=== PATIENT | male | born 1935 | race Caucasian/White ===

== ENCOUNTER → 2023-06-25 09:00 | Outpatient (REF) | payer MEDICARE, BC, SELFPAY ==
[2023-06-25 09:53] LABS: Urine Albumin Negative (Neg - Trace); Urine Bilirubin Negative (Negative); Urine Character Clear (Clear); Urine Color Yellow; Urine Glucose Negative (Negative); Urine Ketone Negative (Negative); Urine Leukocyte Negative (Negative); Urine Nitrite Negative (Negative); Urine Occult Blood Trace (Negative); Urine Urobilinogen 1+ (Neg - 1+)
[2023-06-25 10:15] LABS: % Basophils 0.7 % (0-2); % Eosinophils 1.9 % (0-6); % Immature Granulocytes 0.3 % (0-0.5); % Lymphocytes 15.9 % (20.5-51.1); % Neutrophils 69.2 % (42.2-75.2); Absolute Eosinophils 0.1 10^3/uL (0-0.7); Absolute Lymphocytes 0.9 10^3/uL (1.2-3.4); Absolute Monocytes 0.7 10^3/uL (0.1-0.6); Hematocrit 46.5 % (39.0-52.0); Hemoglobin 15.7 g/dL (13.0-18.0); Mean Corp Hgb Conc. 33.8 g/dL (33.0-37.0); Mean Corpuscular Hgb 32.2 pg (27.0-31.0); Mean Corpuscular Volume 95.3 fL (80.0-94.0); Mean Platelet Volume 9.3 fL (7.4-10.4); Nucleated Red Blood Cells % 0 % (-); Platelet Count 179 10^3/uL (130-400); Red Blood Cell Count 4.88 10^6/uL (4.70-6.10); Red Cell Dist. Width 14.4 % (11.5-14.5); White Blood Cell Count 5.7 10^3/uL (4.8-10.8)
[2023-06-25 10:29] LABS: Urine Red Blood Cell 0-2 /HPF (0-2); Urine White Cell 0-2 /HPF (0-5)
[2023-06-25 10:33] LABS: ALT (SGPT) 33 U/L (0-50); AST (SGOT) 42 U/L (17-59); Albumin 4.2 g/dl (3.5-5.0); Alkaline Phosphatase 80 U/L (38-126); Blood Urea Nitrogen 25 mg/dl (9-20); Calcium 9.4 mg/dl (8.4-10.2); Carbon Dioxide 34 mmol/L (22-30); Chloride 98 mmol/L (98-107); Glucose 97 mg/dl (70-99); HDL Cholesterol 59 mg/dl; LDH 359 U/L (120-246); LDL Cholesterol, Calculated 52 mg/dl; Potassium 3.2 mmol/L (3.5-5.1); Sodium 137 mmol/L (135-145); Total Bilirubin 1.5 mg/dl (0.2-1.3); Total Cholesterol 123 mg/dl (50-199); Total Protein 7.2 g/dl (6.3-8.2); Triglyceride 60 mg/dl (10-149); Very Low Density Lipoprotein 12 mg/dl (0-30); eGFR > 60.00
[2023-06-25 11:51] LABS: PSA, Total - Screen 1.89 ng/ml (0.0-4.0); TSH Reflex To Free T4 2.49 uIU/ml (0.47-4.68)
[2023-06-25 12:56] LABS: Glycohemoglobin (HgbA1c) 6.3 % (4.0-5.6)
== END ==
LOC: REG 09:00
PROVIDERS: ATTENDING PHYSICIAN General Practice; OTHER PHYSICIAN Dermatology; REFERRING PHYSICIAN Internal Medicine Cardiovascular Disease
DX: Z76.89 Persons encountering health services in other specified circumstances (principal); Z79.899 Other long term (current) drug therapy; R73.01 Impaired fasting glucose; R74.02 Elevation of levels of lactic acid dehydrogenase [LDH]; Z12.5 Encounter for screening for malignant neoplasm of prostate
CPT/HCPCS: 36415; 80053; 80061; 81003; 81015; 83036; 83615; 84443; 85025; G0103

== ENCOUNTER → 2023-08-15 09:17 | Outpatient (REF) | payer MEDICARE, BC, SELFPAY | LOC: HWRCS 09:17 | PROVIDERS: ATTENDING PHYSICIAN Internal Medicine Cardiovascular Disease; FAMILY PHYSICIAN General Practice | DX: Z95.2 Presence of prosthetic heart valve (principal) | CPT/HCPCS: 93306 ==

== ENCOUNTER 2023-12-02 07:28 | Inpatient (IN) | payer MEDICARE, BC, SELFPAY ==
[2023-11-12 14:13] VITALS: BMI 24.5
[2023-11-12 14:39] LABS: Hematocrit 43.1 % (39.0-52.0); Hemoglobin 14.9 g/dL (13.0-18.0); Mean Corp Hgb Conc. 34.6 g/dL (33.0-37.0); Mean Corpuscular Hgb 31.5 pg (27.0-31.0); Mean Corpuscular Volume 91.1 fL (80.0-94.0); Mean Platelet Volume 9.6 fL (7.4-10.4); Platelet Count 198 10^3/uL (130-400); Red Blood Cell Count 4.73 10^6/uL (4.70-6.10); Red Cell Dist. Width 14.7 % (11.5-14.5); White Blood Cell Count 6.1 10^3/uL (4.8-10.8)
[2023-11-12 15:11] LABS: ALT (SGPT) 28 U/L (0-50); AST (SGOT) 40 U/L (17-59); Albumin 4.3 g/dl (3.5-5.0); Alkaline Phosphatase 73 U/L (38-126); Blood Urea Nitrogen 24 mg/dl (9-20); Calcium 9.6 mg/dl (8.4-10.2); Carbon Dioxide 31 mmol/L (22-30); Chloride 97 mmol/L (98-107); Estimated Creatinine Clearance 51 ml/min; Glucose 94 mg/dl (70-99); Potassium 3.7 mmol/L (3.5-5.1); Sodium 141 mmol/L (135-145); Total Bilirubin 1.4 mg/dl (0.2-1.3); Total Protein 7.3 g/dl (6.3-8.2); eGFR > 60.00
[2023-11-13 08:39] LABS: Glycohemoglobin (HgbA1c) 5.6 % (4.0-5.6)
[2023-12-02] VITALS (12 sets, daily range): BP systolic 117–164; BP diastolic 53–84; O2SAT 96; BMI 24.5; BMI 25.3
[2023-12-02] MEDS: TYLENOL 650 MG PO ×5 (08:02→23:42)
[2023-12-02] MEDS: CELEBREX 200 MG PO (08:03)
[2023-12-02] MEDS: NORMOSOL-R/PLASMALYTE-A 1000 IV ×2 (08:04→13:39)
[2023-12-02] MEDS: ROXICODONE 5 MG PO (12:28)
--- NOTE | 2023-12-02 12:46 | W.PN.ORTHO ---
Today's Communication / Plan
-
D/c when clinically stable.
Assessment
.
Distal Motor Intact: Yes
Dressing:
Scant areas of incisional bleeding.
Assessment:
L knee OA s/p L TKA w/ Dr Charles 12/02/23
- s/p b/l PAUL
DVT prophylaxis - Eliquis at modified dosing, b/l venous foot pumps
- Home dosing of Eliquis to be resumed POD 3 if hemodynamically stable
HTN - + parameters - monitor BP
LBBB and PAF � monitor on tele
- Continue Carvedilol, Diltiazem
- Eliquis as stated above
DENISE, compliant w/ CPAP and chronic SANTANA - monitor O2
- Continue CPAP HS
- IS
HLD�
CAD s/p PCI w/ stent to mid
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
Mild AR
Mild-mod MR
Mod TR
H/o vasovagal syncope
Diverticulosis
Prostate CA, s/p XRT 2002
Melanoma
[place] b/l
Has prophylactic Cefadroxil upon d/c
Plan
.
Surgery / Date: L TKA w/ Dr Charles 12/02/23
DVT Prophylaxis: Other (Eliquis )
Activity:
Out of bed.
PT/OT
Discharge Plan: Home w/ Outpatient PT
Subjective
.
.:
Patient resting comfortably in PACU.
L knee pain minimal and currently well tolerated.
Denies any new significant complaints.
Vital Signs and Labs
.
Vital Signs and Labs:
Lab Results
11/12/23 14:09
11/12/23 14:09
Temp Pulse Resp BP Pulse Ox
97.9 F 71 16 156/72 100
12/02/23 07:52 12/02/23 07:52 12/02/23 07:52 12/02/23 07:52 12/02/23 07:52
Physical Exam
-
HEENT: No pallor, cyanosis, or jaundice. Throat clear.
NECK: Supple. No JVD.
RESPIRATORY: Lungs clear to auscultation.
CVS: Irregular irregular.
ABDOMEN: Soft, non-tender. No distension.
EXTREMITIES: Strength equal, no calf pain with palpation/dorsiflexion. Calves soft.
WELFARE INVESTIGATOR: AOx3. No focal deficits. security coordinator grossly intact
--- NOTE | 2023-12-02 13:59 | PTCARENOTE ---
1316: Patient arrived to 2S. Full head to toe assessment completed. B/L LE neurovascular assessment completed. Scant amount of drainage on L knee primaseal. Patient on RA with SpO2 greater than 92%. IVF running per order. Call vital within reach and
bed in lowest position. Patients family at bedside.
--- NOTE | 2023-12-02 16:58 | RESPNOTE ---
Patient said he is here for only one night and would like to sleep without the CPAP machine.
[2023-12-02] MEDS: ANCEF 5 IV (17:03)
[2023-12-02] MEDS: LIPITOR 80 MG PO (17:03)
[2023-12-02] MEDS: BACTROBAN 2% OINTMENT 1 APPLIC NASAL (21:00)
[2023-12-02] MEDS: ELIQUIS 2.5 MG PO (21:00)
[2023-12-02] MEDS: DECADRON 4 MG PO (21:00)
[2023-12-02] MEDS: COREG 3.125 MG PO (21:00)
[2023-12-02] MEDS: COLACE 100 MG PO (21:00)
[2023-12-02] MEDS: SENOKOT 17.2 MG PO (21:00)
[2023-12-03] MEDS: ANCEF 5 IV (01:07)
[2023-12-03 03:05] VITALS: BP 132/70
[2023-12-03] MEDS: TYLENOL PO (04:37)
[2023-12-03 07:40] VITALS: BP 151/74
[2023-12-03] MEDS: ELIQUIS 2.5 MG PO (07:54)
[2023-12-03] MEDS: ZETIA 10 MG PO (07:54)
[2023-12-03] MEDS: COLACE 100 MG PO (07:54)
[2023-12-03] MEDS: SENOKOT 17.2 MG PO (07:54)
[2023-12-03] MEDS: CARDIZEM CD 180 MG PO (07:54)
[2023-12-03] MEDS: PROTONIX 40 MG PO (07:55)
[2023-12-03] MEDS: COREG 3.125 MG PO (07:55)
[2023-12-03] MEDS: DECADRON 4 MG PO (07:55)
[2023-12-03] MEDS: TYLENOL 650 MG PO (07:55)
[2023-12-03] MEDS: Hygroton 25 MG PO (07:55)
[2023-12-03] MEDS: BACTROBAN 2% OINTMENT 1 APPLIC NASAL (07:55)
[2023-12-03 08:40] VITALS: BP 174/90
--- NOTE | 2023-12-03 09:31 | W.PN.ORTHO ---
Today's Communication / Plan
-
D/c today since clinically stable, did well w/ PT and OT.
Assessment
.
Distal Motor Intact: Yes
Dressing:
Scant areas of old incisional bleeding.
Assessment:
L knee OA s/p L TKA w/ Dr Charles 12/02/23
- s/p b/l PAUL
DVT prophylaxis - Eliquis at modified dosing, b/l venous foot pumps
- Home dosing of Eliquis to be resumed POD 3 since hemodynamically stable
HTN - + parameters - BPs stable
LBBB and PAF � maintaining rate controlled A fib on tele
- Continue Carvedilol, Diltiazem
- Eliquis as stated above
DENISE, compliant w/ CPAP and chronic SANTANA - O2 stable on RA
- Continue CPAP HS
- IS
HLD�
CAD s/p PCI w/ stent to mid
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
Mild AR
Mild-mod MR
Mod TR
H/o vasovagal syncope
Diverticulosis
Prostate CA, s/p XRT 2002
Melanoma
[place] b/l
Has prophylactic Cefadroxil upon d/c
Plan
.
Surgery / Date: L TKA w/ Dr Charles 12/02/23
DVT Prophylaxis: Other (Eliquis )
Activity:
Out of bed.
PT/OT
Discharge Plan: Home w/ VN
Subjective
.
.:
Patient resting comfortably in his chair.
L knee pain well controlled w/ minimal meds overnight.
Denies any new significant complaints.
Eager for potential d/c today.
Vital Signs and Labs
.
Vital Signs and Labs:
Lab Results
11/12/23 14:09
11/12/23 14:09
Temp Pulse Resp BP Pulse Ox
98.0 F 85 18 151/74 96
12/03/23 07:40 12/03/23 07:55 12/03/23 07:40 12/03/23 07:55 12/03/23 07:40
Physical Exam
-
HEENT: No pallor, cyanosis, or jaundice. Throat clear.
NECK: Supple. No JVD.
RESPIRATORY: Lungs clear to auscultation.
CVS: Irregular irregular (rate controlled)
ABDOMEN: Soft, non-tender. No distension.
EXTREMITIES: Mild post-op L knee edema. Strength equal, no calf pain with palpation/dorsiflexion. Calves soft.
FINANCIAL COUNSELOR: AOx3. No focal deficits. agricultural extension agent grossly intact
--- NOTE | 2023-12-03 09:41 | W.DS.TRANS ---
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
-
Discharge Instructions:
Discharge Diagnosis/Procedures L knee OA s/p L TKA w/ Dr Charles 12/02/23
Diet Regular
Activity As tolerated,With Walker
Driving Restrictions Not until seen by your Dr
Bathing Restrictions OK to Shower
Other Services PT
Wound Care Dressing to be removed 1 week post-surgery.
Jo Ann to be removed at 2 week follow-up
appointment with surgeon's office.
Instructions:
Stand-Alone Forms: Total Hip/Knee Replacement D/C
Changes to Home Medications: Yes
Discharge Medications:
DC Medications w/original date entered in [employer]
oebhwdlg-jtxurfmr-eyepq acid 400 mcg-vit K 20 mcg-lycop 300 mcg tablet (Men's Multivitamin) 1 tab PO QPM Supplement 10/15/18
vitamins A,C,A-ohjm-osmryj 4,296 mcg-226 mg-90 mg capsule (PreserVision AREDS) 2 cap PO BID Supplement 11/20/18
atorvastatin 80 mg tablet 80 mg PO QPM High cholesterol 07/16/22
carvedilol 3.125 mg tablet 3.125 mg PO BID Blood pressure 07/16/22
diltiazem HCl 180 mg capsule,extended release 24 hr 180 mg PO DAILY Arrhythmia 07/16/22
ezetimibe 10 mg tablet 10 mg PO DAILY High cholesterol 07/16/22
pantoprazole 40 mg tablet,delayed release 40 mg PO DAILY Gastrointestinal issue 07/16/22
apixaban 5 mg tablet (Eliquis) 5 mg PO BID Blood clot prevention/tx 07/17/22
mupirocin 2 % topical ointment 1 applic topical BID Infection 11/26/23
Saccharomyces boulardii 250 mg capsule (Florastor) 250 mg PO BID #14 caps 12/03/23
acetaminophen 325 mg tablet 650 mg (2 x 325 mg) PO Q4HWA #0 tabs 12/03/23
apixaban 2.5 mg tablet (Eliquis) 2.5 mg PO BID #3 tabs 12/03/23
cefadroxil 500 mg capsule 500 mg PO BID #14 caps 12/03/23
chlorthalidone 25 mg tablet 25 mg PO DAILY Blood pressure #0 tabs 12/03/23
dexamethasone 4 mg tablet 4 mg PO Q12H Anti-inflammatory #7 tabs 12/03/23
docusate sodium 100 mg capsule 100 mg PO BID #30 caps 12/03/23
ondansetron HCl 4 mg tablet 4 mg PO Q6H PRN nausea and vomiting #30 tabs 12/03/23
oxycodone 5 mg tablet 5 - 10 mg (1 - 2 x 5 mg) PO Q6H PRN moderate-severe pain #30 tabs 12/03/23
sennosides 8.6 mg tablet (Senna Laxative) 17.2 mg (2 x 8.6 mg) PO BID #30 tabs 12/03/23
Home Medication Changes
Saccharomyces boulardii 250 mg capsule (Florastor) 250 mg PO BID #14 caps 12/03/23
acetaminophen 325 mg tablet 650 mg (2 x 325 mg) PO Q4HWA #0 tabs 12/03/23
apixaban 2.5 mg tablet (Eliquis) 2.5 mg PO BID #3 tabs 12/03/23 - until POD 3
cefadroxil 500 mg capsule 500 mg PO BID #14 caps 12/03/23
dexamethasone 4 mg tablet 4 mg PO Q12H Anti-inflammatory #7 tabs 12/03/23
docusate sodium 100 mg capsule 100 mg PO BID #30 caps 12/03/23
ondansetron HCl 4 mg tablet 4 mg PO Q6H PRN nausea and vomiting #30 tabs 12/03/23
oxycodone 5 mg tablet 5 - 10 mg (1 - 2 x 5 mg) PO Q6H PRN moderate-severe pain #30 tabs 12/03/23
sennosides 8.6 mg tablet (Senna Laxative) 17.2 mg (2 x 8.6 mg) PO BID #30 tabs 12/03/23
Pending Results: No
[2023-12-03 09:52] VITALS: BP 174/90; PULSE 111
--- NOTE | 2023-12-03 11:13 | CM ---
Addendum entered by Sydney Echols RN 12/03/23 11:32:
Spoke with RN from [facility], no VN has been set up for the patient. CM spoke with the patient via telephone, as he had been discharged, he has arranged outpatient therapy at [facility].
Original Note:
Reviewed the chart notes and spoke with the patient and his spouse at the bedside. The patient resides with his spouse in a one story home with one step to enter. The patient has a CPAP, shower chiar, rolling walker, tub grab bars. The patient
has had [facility] VN in the past, but no SNF. Per patient, he has arranged for [facility] VN to see him in his home. Call placed and message left for VN RN to confirm and obtain fax number for instructions. CM continues to be available to
patient/family and is monitoring medical plan for needs at discharge.
Plan: Discharge to home with [facility] VN service.
--- NOTE | 2023-12-04 14:08 | CM ---
Received call from Hiral ALLISON with [facility]. Patient has not set up any therapy per Hiral. Requests a referral for VN be sent to [facility]. Referral sent via [facility].
== END 2023-12-03 10:21 | disposition home or self-care (01) | DRG 470 ==
LOC: 2 SOUTH 07:28
PROVIDERS: ADMITTING PHYSICIAN Specialist; FAMILY PHYSICIAN Family Medicine; REFERRING PHYSICIAN Internal Medicine Cardiovascular Disease
PROC: 0SRD0J9 Replacement of Left Knee Joint with Synthetic Substitute, Cemented, Open Approach (ICD-10-PCS; 2023-12-02)
DX: M17.12 Unilateral primary osteoarthritis, left knee (principal); I10 Essential (primary) hypertension; I35.0 Nonrheumatic aortic (valve) stenosis; I48.0 Paroxysmal atrial fibrillation; I25.10 Atherosclerotic heart disease of native coronary artery without angina pectoris; G47.33 Obstructive sleep apnea (adult) (pediatric); C61 Malignant neoplasm of prostate; I44.7 Left bundle-branch block, unspecified; Z79.01 Long term (current) use of anticoagulants
CPT/HCPCS: 36415; 73560; 80053; 83036; 85027; 87070; 97110; 97116; 97162; 97166; 97535; C1713; C1776

== ENCOUNTER → 2024-07-10 09:08 | Outpatient (REF) | payer MEDICARE, BC, SELFPAY | LOC: HWRCS 09:08 | PROVIDERS: ATTENDING PHYSICIAN Internal Medicine Cardiovascular Disease; FAMILY PHYSICIAN General Practice | DX: Z95.2 Presence of prosthetic heart valve (principal); I10 Essential (primary) hypertension; I48.91 Unspecified atrial fibrillation; I44.7 Left bundle-branch block, unspecified; R55 Syncope and collapse | CPT/HCPCS: 93306 ==